=== PATIENT | female | born 1995 | race Caucasian/White ===

== ENCOUNTER 2021-05-06 14:32 | Emergency (ER) | payer SELFPAY ==
[~2021-05-06] VITALS: Ht 154.9 cm; Wt 44.2 kg
[2021-05-06 14:33] VITALS: BP 116/67
== END 2021-05-06 17:30 | disposition left against medical advice (07) ==
LOC: M ED 14:32 → EDSEX 14:32 → M ED 17:30
DX: Z53.21 Procedure and treatment not carried out due to patient leaving prior to being seen by health care provider (principal)

== ENCOUNTER 2021-05-07 16:53 | Emergency (ER) | payer SELFPAY ==
[~2021-05-07] VITALS: Ht 154.9 cm; Wt 44.6 kg
[2021-05-07 16:54] VITALS: BP 91/58
== END 2021-05-07 19:15 | disposition left against medical advice (07) ==
LOC: M ED 16:53
DX: Z53.21 Procedure and treatment not carried out due to patient leaving prior to being seen by health care provider (principal)